=== PATIENT | female | born 1940 | race Caucasian/White ===

== ENCOUNTER 2020-10-16 21:50 | Inpatient (IN) ==
[2020-10-16] MEDS ORDERED: Isovue-370 500 ML BOTTLE IVP ONE (22:20)
[2020-10-16] MEDS ORDERED: *HR* FentaNYL (PF) 100 MCG/2 ML VIAL IVP ONE (22:21)
[2020-10-16 22:24] LABS: Basophils % 0.1 %; Eosinophils # 0.1 K/mcL (0.0-0.6); Eosinophils % 0.8 %; Hematocrit 29.6 % (35.3-44.9); Hemoglobin 9.8 g/dL (11.5-15.4); Immature Granulocytes % 0.4 % (0-4); Lymphocytes # 1.2 K/mcL (0.6-4.6); Lymphocytes % 6.7 %; Mean Corpuscular HGB Conc 33.1 g/dL (31.6-35.5); Mean Corpuscular Hemoglobin 30.2 pg (28.0-33.3); Mean Corpuscular Volume 91.1 fL (83.0-100.0); Mean Platelet Volume 11.1 fL (9.4-12.4); Monocytes % 5.5 %; Neutrophils # 15.8 K/mcL (1.6-8.9); Platelet Count 181 K/mcL (140-400); Red Blood Count 3.25 M/mcL (3.82-4.97); Red Cell Distribution Width 13.5 % (11.5-14.5); Segmented Neutrophils % 86.5 %; White Blood Count 18.3 K/mcL (4.3-11.1)
[2020-10-16 22:41] LABS: Albumin 3.4 g/dL (3.5-5.7); Albumin/Globulin Ratio 1.3 (1.1-2.2); Bilirubin,Total 0.7 mg/dL (0.3-1.0); Calcium 8.7 mg/dL (8.6-10.3); Globulin 2.7 g/dL (2.4-3.5); Potassium 4.4 mEq/L (3.5-5.1); Total Protein 6.1 g/dL (6.4-8.9)
[2020-10-16 23:33] LABS: Bilirubin,Urine Negative (Negative); Blood,Urine Moderate (Negative); Clarity,Urine Turbid (Clear); Color,Urine Yellow (Yellow); Glucose,Urine (UA) Normal (Normal); Hyaline Casts,Urine Few per lpf (None Seen); Ketones,Urine Negative (Negative); Leukocyte Esterase,Urine Large (Negative); Mucus,Urine Few per lpf (None-Few); Nitrite,Urine Negative (Negative); Protein,Urine 30 mg/dL (Neg-Trace); Specific Gravity,Urine 1.013 (1.010-1.025); Squamous Epithelial Cell,Urine Few per hpf (None-Few); Urobilinogen,Urine Normal (Normal); WBC,Urine 50-100 per hpf (0-3)
[2020-10-17] MEDS ORDERED: 0.9 % Sodium Chloride 1,000 ML IVC ONE (00:12)
[2020-10-17] MEDS ORDERED: *HR* HYDROmorphone (PF) 1 MG/ML SYRINGE IVP ONE (00:21)
[2020-10-17] MEDS ORDERED: Piperacillin/Tazobactam 3.375 GM in 0.9 % Sodium Chloride Mini Bag 100 ML IVPB ONE (01:03)
[2020-10-17] MEDS ORDERED: Ondansetron 4 MG/2 ML VIAL IVP PRN (03:21)
[2020-10-17] MEDS ORDERED: Melatonin 3 MG TABLET PO PRN (03:21)
[2020-10-17] MEDS ORDERED: Naloxone 0.4 MG/ML INJ IVP PRN (03:21)
[2020-10-17] MEDS ORDERED: 0.9 % Sodium Chloride 1,000 ML IVC SCH (03:30)
[2020-10-17 03:59] LABS: Amphetamine Screen,Urine Negative ng/mL (Cutoff=1000); Barbiturate Screen,Urine Negative ng/mL (Cutoff=200); Benzodiazepines Screen,Urine Negative ng/mL (Cutoff=200); Cannabinoid Screen,Urine Negative ng/mL (Cutoff = 50); Cocaine Screen,Urine Negative ng/mL (Cutoff= 300); Opiate Screen,Urine Negative ng/mL (Cutoff=300); Phencyclidine Screen,Urine Negative ng/mL (Cutoff=25)
[2020-10-17 06:06] LABS: Adenovirus F 40/41 PCR Not detected (Not detect); Astrovirus PCR Not detected (Not detect); C.difficile Toxin A/B Gene PCR Not detected (Not detect); Campylobacter by PCR Not detected (Not detect); Cryptosporidium by PCR Not detected (Not detect); Cyclospora cayetanensis PCR Not detected (Not detect); E. coli O157 by PCR Not detected (Not detect); Entamoeba histolytica PCR Not detected (Not detect); Enteroaggregative E.coli(EAEC) Not detected (Not detect); Enteropathogenic E.coli(EPEC) Not detected (Not detect); Enterotoxigenic E.coli (ETEC) Not detected (Not detect); Giardia lamblia PCR Not detected (Not detect); Norovirus GI/GII PCR DETECTED (Not detect); Plesiomonas shigelloides PCR Not detected (Not detect); Rotavirus A PCR Not detected (Not detect); Salmonella PCR Not detected (Not detect); Sapovirus PCR Not detected (Not detect); Shig/EnteroinvasiveE coli EIEC Not detected (Not detect); Shigalike tox-prod E coli STEC Not detected (Not detect); Vibrio PCR Not detected (Not detect); Vibrio cholerae PCR Not detected (Not detect); Yersinia enterocolitica PCR Not detected (Not detect)
[2020-10-17 06:19] LABS: Hematocrit 26.6 % (35.3-44.9); Hemoglobin 8.7 g/dL (11.5-15.4); Mean Corpuscular HGB Conc 32.7 g/dL (31.6-35.5); Mean Corpuscular Hemoglobin 30.4 pg (28.0-33.3); Platelet Count 163 K/mcL (140-400); Red Blood Count 2.86 M/mcL (3.82-4.97); Red Cell Distribution Width 13.3 % (11.5-14.5); White Blood Count 11.9 K/mcL (4.3-11.1)
[2020-10-17 06:45] LABS: Calcium 8.3 mg/dL (8.6-10.3); Potassium 3.9 mEq/L (3.5-5.1)
[2020-10-17] MEDS ORDERED: *HR* Dextrose 50 % in Water (Vial) 50 ML VIAL IVP PRN (09:34)
[2020-10-17] MEDS ORDERED: Dextrose Gel 15 GM/37.5 ML TUBE PO PRN ×2 (09:34)
[2020-10-17] MEDS ORDERED: D5% in Water 1,000 ML IVC PRN (09:34)
[2020-10-17 09:57] LABS: INR 1.3; Prothrombin Time 14.4 Seconds (9.4-12.1)
[2020-10-17] MEDS ORDERED: *HR* OxyCODONE Immed Rel 5 MG TABLET PO PRN (09:58)
[2020-10-17] MEDS ORDERED: Acetaminophen 325 MG TABLET PO PRN (09:58)
[2020-10-17] MEDS ORDERED: polyethylene glycoL 3350 17 GM POWD.PACK PO PRN (09:59)
[2020-10-17] MEDS: Piperacillin/Tazobactam 3.375 GM in 0.9 % Sodium Chloride Mini Bag 100 ML IVPB SCH ×2 (11:08→17:04)
[2020-10-17] MEDS: Insulin LISPRO 300 UNITS/3 ML VIAL SUBQ SCH ×3 (11:37→22:12)
[2020-10-17] MEDS: Furosemide 20 MG TABLET PO SCH (17:04)
[2020-10-17] MEDS: Sennosides/Docusate Sodium TABLET PO SCH (22:15)
[2020-10-18] MEDS: Piperacillin/Tazobactam 3.375 GM in 0.9 % Sodium Chloride Mini Bag 100 ML IVPB SCH ×3 (03:19→16:57)
[2020-10-18 05:44] LABS: Hematocrit 27.6 % (35.3-44.9); Hemoglobin 8.9 g/dL (11.5-15.4); Mean Corpuscular HGB Conc 32.2 g/dL (31.6-35.5); Mean Corpuscular Hemoglobin 30.4 pg (28.0-33.3); Mean Corpuscular Volume 94.2 fL (83.0-100.0); Mean Platelet Volume 10.9 fL (9.4-12.4); Platelet Count 179 K/mcL (140-400); Red Blood Count 2.93 M/mcL (3.82-4.97); Red Cell Distribution Width 13.5 % (11.5-14.5); White Blood Count 9.3 K/mcL (4.3-11.1)
[2020-10-18 06:05] LABS: BUN/Creatinine Ratio 37 (6-26); Blood Urea Nitrogen 36 mg/dL (8-23); Calcium 8.4 mg/dL (8.6-10.3); Carbon Dioxide 25 mEq/L (23-29); Chloride 108 mEq/L (98-107); Glucose 124 mg/dL (70-105); Osmolality,Calculated 300 (280-300); Potassium 3.9 mEq/L (3.5-5.1); Sodium 140 mEq/L (136-145); eGFR For African Americans > 60 (> 60); eGFR For Non-African Americans 55 (> 60)
[2020-10-18] MEDS: Furosemide 20 MG TABLET PO SCH ×2 (08:32→16:55)
[2020-10-18] MEDS: Sennosides/Docusate Sodium TABLET PO SCH (08:32)
[2020-10-18] MEDS: Isosorbide MONOnitrate (24 HR) 30 MG TAB.ER.24H PO SCH (08:32)
[2020-10-18] MEDS: amLODIPine 5 MG TABLET PO SCH (08:32)
[2020-10-18] MEDS: Insulin LISPRO 300 UNITS/3 ML VIAL SUBQ SCH ×4 (08:33→20:27)
[2020-10-18] MEDS ORDERED: PANTOPRAZOLE SODIUM 20 MG PO SCH (09:00)
[2020-10-18] MEDS: allopurinoL 100 MG TABLET PO SCH (09:32)
[2020-10-18] MEDS: Aspirin Enteric Coated 81 MG Tablet PO SCH (09:32)
[2020-10-18] MEDS: Multivit/Ca/Min/Fe/FA 1 TAB TABLET PO SCH (09:39)
[2020-10-18] MEDS: Pantoprazole 40 MG VIAL IVP SCH (10:01)
[2020-10-19] MEDS: Piperacillin/Tazobactam 3.375 GM in 0.9 % Sodium Chloride Mini Bag 100 ML IVPB SCH (02:12)
[2020-10-19 02:40] LABS: Basophils % 0.2 %; Eosinophils # 0.5 K/mcL (0.0-0.6); Eosinophils % 4.6 %; Hematocrit 26.6 % (35.3-44.9); Hemoglobin 8.6 g/dL (11.5-15.4); Immature Granulocytes % 0.4 % (0-4); Lymphocytes # 1.7 K/mcL (0.6-4.6); Lymphocytes % 16.7 %; Mean Corpuscular HGB Conc 32.3 g/dL (31.6-35.5); Mean Corpuscular Hemoglobin 29.8 pg (28.0-33.3); Mean Platelet Volume 10.3 fL (9.4-12.4); Monocytes # 0.8 K/mcL (0.0-1.3); Monocytes % 8.3 %; Platelet Count 199 K/mcL (140-400); Red Blood Count 2.89 M/mcL (3.82-4.97); Red Cell Distribution Width 13.2 % (11.5-14.5); Segmented Neutrophils % 69.8 %
[2020-10-19 02:59] LABS: BUN/Creatinine Ratio 27 (6-26); Blood Urea Nitrogen 28 mg/dL (8-23); Calcium 8.3 mg/dL (8.6-10.3); Carbon Dioxide 25 mEq/L (23-29); Chloride 108 mEq/L (98-107); Glucose 121 mg/dL (70-105); Osmolality,Calculated 297 (280-300); Potassium 4.4 mEq/L (3.5-5.1); Sodium 140 mEq/L (136-145); eGFR For African Americans > 60 (> 60); eGFR For Non-African Americans 51 (> 60)
[2020-10-19 07:10] VITALS: BP 153/72
[2020-10-19] MEDS: allopurinoL 100 MG TABLET PO SCH (08:54)
[2020-10-19] MEDS: Isosorbide MONOnitrate (24 HR) 30 MG TAB.ER.24H PO SCH (08:54)
[2020-10-19] MEDS: amLODIPine 5 MG TABLET PO SCH (08:54)
[2020-10-19] MEDS: Multivit/Ca/Min/Fe/FA 1 TAB TABLET PO SCH (08:54)
[2020-10-19] MEDS: Furosemide 20 MG TABLET PO SCH (08:54)
[2020-10-19] MEDS: Aspirin Enteric Coated 81 MG Tablet PO SCH (08:54)
[2020-10-19] MEDS: Pantoprazole 40 MG VIAL IVP SCH (08:55)
== END 2020-10-19 11:55 | disposition home health service (06) | DRG 394 ==
LOC: EMEROOARM 21:50 → 3ANU 21:50 → SUATTDRO 10-17 03:01 → 3ANU 10-17 03:23
PROVIDERS: ADMIT Family Medicine; ATTEND Family Medicine